=== PATIENT | male | born 1940 | race Caucasian/White ===

== ENCOUNTER 2021-10-03 07:39 | Outpatient (CLI) | payer MEDICARE | END 2021-10-03 07:40 | disposition home or self-care (01) | LOC: CSHULT 07:39 | PROVIDERS: ATTEND Internal Medicine Nephrology | DX: N18.30 Chronic kidney disease, stage 3 unspecified (principal); R06.09 Other forms of dyspnea; N27.0 Small kidney, unilateral; R94.2 Abnormal results of pulmonary function studies | CPT/HCPCS: 76770; 94060; 94726; 94729; 94760 ==